=== PATIENT | male | born 1975 | race Caucasian/White ===

== ENCOUNTER → 2023-04-11 | Outpatient (CLI) | payer OTHER ==
--- NOTE | 2023-04-11 10:18 | XR ---
EXAMINATION TYPE: XR cervical spine comp DATE OF EXAM: 04/11/2023 10:03 AM CLINICAL INDICATION:Male, 48 years old with history of M50.30; COMPARISON: None TECHNIQUE: The cervical spine was imaged in frontal, lateral, odontoid and bilateral oblique. FINDINGS: The osseous structures show normal alignment without evidence of an acute fracture. No significant ve rtebral body osteophytes or facet joint arthropathy. The intervertebral disk spaces are preserved. Pe dicles are intact. Soft tissues are within normal limits. The odontoid appears intact. IMPRESSION: 1. No fracture or dislocation. 2. Mild degenerative disc disease changes of the cervical spine.
== END | disposition home or self-care (01) ==
LOC: RADXRMAIN 09:51
PROVIDERS: ATTEND Family Medicine
DX: M50.30 Other cervical disc degeneration, unspecified cervical region (principal)
CPT/HCPCS: 72050

== ENCOUNTER → 2023-06-17 | Outpatient (CLI) | payer OTHER ==
--- NOTE | 2023-06-17 21:02 | XR ---
EXAMINATION TYPE: XR elbow complete 3 views bilateral, XR lumbosacral spine 5 views, XR wrist complete 4 views BILATERAL, XR knee complete 3 views bilateral DATE OF EXAM: 06/17/2023 COMPARISON: NONE HISTORY: 48-year-old male chronic pain FINDINGS: Right elbow: No elbow joint effusion. No acute fracture, subluxation, dislocation. Left elbow: No elbow joint effusion. No acute fracture, subluxation, dislocation. Left wrist: The radiocarpal and distal radial ulnar joint as well as the midcarpal compartment appear intact. No acute fracture, subluxation, dislocation. Right wrist: The radiocarpal and distal radial ulnar joint as well as midcarpal compartment appear intact. There m ay be early mild degenerative spurring at the first CMC and triscaphe joint. No acute fracture, sublu xation, dislocation. Lumbar spine: 5 lumbar type vertebral bodies. Alignment is maintained. There is minimal anterior wedging at T12 whi ch has a chronic appearance and should be correlated clinically. Otherwise, vertebral body heights ar e preserved. No pars interarticularis defect is clearly seen. There is facet arthropathy in the lower lumbar spine. Knees: Trace knee joint effusion on both sides. Extensor mechanisms appear intact. No acute fracture, sublux ation, or dislocation on either side. Joint spaces appear maintained. IMPRESSION: 1. Elbows: No acute osseous or pneumonia seen. 2. Wrists: No acute osseous abnormality seen. Minimal early degenerative spurring at the base of the thumb on the right. 3. Lumbar spine: Minimal anterior wedging of T12 is suspected to be chronic. Correlate for any focal pain at this level or history of prior injury. No other vertebral compression collapse or malalignmen t. Facet arthropathy lower lumbar spine. 4. Knees: Trace bilateral knee joint effusions are nonspecific. No acute osseous abnormality seen.
== END | disposition home or self-care (01) ==
LOC: RADXRMAIN 09:03
PROVIDERS: ATTEND Family Medicine
DX: M47.816 Spondylosis without myelopathy or radiculopathy, lumbar region (principal); M51.36 Other intervertebral disc degeneration, lumbar region; M19.031 Primary osteoarthritis, right wrist; M19.90 Unspecified osteoarthritis, unspecified site; M25.461 Effusion, right knee; M25.462 Effusion, left knee
CPT/HCPCS: 72110

== ENCOUNTER → 2024-05-24 | Outpatient (CLI) | payer OTHER ==
--- NOTE | 2024-05-24 08:27 | XR ---
EXAMINATION TYPE: XR Hip Bilateral Complete DATE OF EXAM: 05/24/2024 7:16 AM COMPARISON: None CLINICAL INDICATION: Male, 49 years old with history of M16.9 OA Hip; PHH, pain TECHNIQUE: XR Hip Bilateral Complete; Frontal and lateral views FINDINGS: No evidence for acute process, joint dislocation or significant soft tissue swelling. Osteo phyte formation of the superior acetabulum of the hip. There is mild joint space narrowing. IMPRESSION: 1. No evidence for acute process. 2. Mild bilateral hip osteoarthrosis. [facility], , 05/24/2024 8:24 AM
== END | disposition home or self-care (01) ==
LOC: RADMRIMAIN 06:40
PROVIDERS: ATTEND Family Medicine
DX: M16.0 Bilateral primary osteoarthritis of hip (principal); M54.12 Radiculopathy, cervical region
CPT/HCPCS: 73521